=== PATIENT | male | born 1930 | race Caucasian/White ===

== ENCOUNTER 2018-05-25 07:53 | Day surgery (SDC) | payer MEDICARE ==
[~2018-05-25] VITALS: Ht 180.3 cm; Wt 61.2 kg
[~2018-05-25 07:53] MED LIST: DOXA4TAB3 PO; FERR325T14 PO; HYDROmorphone 2 MG/ML VIAL IV PRN; IV RINGERS,LACTATED 1000ML 1,000 ML IV SCH; LIDOCAINE 1% PF 2 ML VIAL. ID PRN; MORPHINE SULFATE 4 MG/ML VIAL. IV PRN; MV-M1TAB7 PO; OMEP40CA5 PO; ONDANSETRON PF 4 MG/2 ML VIAL. IV PRN; PROCHLORPERAZINE 10 MG/2 ML VIAL. IV PRN; TAMS0.4C2 PO; TRAZ-118 PO; fentaNYL PF VIAL 100 MCG/2 ML VIAL IV PRN
[2018-05-25 08:35] LABS: BASO % 1 % (0-3); EOS # 0.3 x10^3/uL (0.0-0.7); EOS % 8 % (0-3); HEMATOCRIT 40.3 % (39.0-53.0); HEMOGLOBIN 14.2 g/dL (13.0-17.5); LYMPH % 21 % (24-48); MEAN CORPUSCULAR HEMOGLOBIN 34 pg (25-35); MEAN CORPUSCULAR HGB CONC 35 g/dL (31-37); MEAN CORPUSCULAR VOLUME 97 fL (79-100); MONO # 0.5 x10^3/uL (0.0-1.1); MONO % 11 % (0-9); NEUT # 2.8 x10^3uL (1.8-7.7); NEUT % 60 % (31-73); PLATELET COUNT 436 x10^3/uL (140-400); RED BLOOD COUNT 4.15 x10^6/uL (4.30-5.70); RED CELL DISTRIBUTION WIDTH 12.9 % (11.5-14.5); WHITE BLOOD COUNT 4.7 x10^3/uL (4.0-11.0)
[2018-05-25 08:47] LABS: ALBUMIN 3.2 g/dL (3.4-5.0); CALCIUM 9.4 mg/dL (8.5-10.1); CREATININE 1.5 mg/dL (0.7-1.3); GFR 44.2
[2018-05-25] MEDS ORDERED: BUPIVAC MPF-EPI 0.5%-1:200000 30 ML VIAL. ONE (09:09)
[2018-05-25] MEDS ORDERED: LIDOCAINE 2% PF 5 ML VIAL. ONE (09:45)
[2018-05-25] MEDS ORDERED: PROPOFOL 20 ML IV ONE (09:45)
[2018-05-25] MEDS ORDERED: DEXAMETHASONE SOD PHOS 20 MG/5 ML VIAL. ONE (09:45)
[2018-05-25] MEDS ORDERED: ONDANSETRON PF 4 MG/2 ML VIAL. ONE (09:45)
[2018-05-25] MEDS ORDERED: fentaNYL PF VIAL 100 MCG/2 ML VIAL ONE ×2 (09:54→11:08)
[2018-05-25] MEDS ORDERED: SEVOFLURANE 31 TO 60 MINUTES. IH ONE (10:35)
--- NOTE | 2018-05-25 10:41 | PDOC ---
BRIEF OPERATIVE NOTE Date: May 25, 2018 Pre-Op Diagnosis incarcerated recurrent left inguinal hernia Post-Op Diagnosis same, indirect Procedure Performed repair with mesh, partial omentectomy Surgeon Heraclio Anesthesia Type: General Blood Loss 10cc IV Fluid 500cc Specimens Obtained hernia sack omentum Findings incarcerated omentum in an indirect hernia sack Complications none Operative Note WK # [id number] HILTON STORY MD May 25, 2018 10:41
--- NOTE | 2018-05-25 10:43 | DISCH ---
DISCHARGE INSTRUCTIONS Condition on Discharge Condition on Discharge: Stable Activity After Discharge Activity Instructions for Disc: Activity as tolerated, Avoid exertion Lifting Instructions after Dis: No heavy lifting Driving Instructions after Dis: Do not drive Diet after Discharge Diet after Discharge: Regular Wound Incision Care Wound/Incision Care: Ice to area for comfort Other wound/incision instructi: amanda showkerri Follow-Up Follow up with: Hercalio 06/04 HILTON STORY MD May 25, 2018 10:43
--- NOTE | 2018-05-25 10:52 | OP ---
DATE OF SURGERY: 05/25/2018 PREOPERATIVE DIAGNOSIS: Incarcerated left inguinal hernia. POSTOPERATIVE DIAGNOSIS: Incarcerated left inguinal hernia, indirect. PROCEDURE: 1. Repair with mesh. 2. Partial omentectomy. SURGEON: Michel Story MD. ANESTHESIA: General LMA. ESTIMATED BLOOD LOSS: 10 mL. IV FLUID: 500 mL. INDICATIONS: The patient is an 87-year-old extremely hard of hearing gentleman with a large fullness in the left groin, brought in for repair. OPERATIVE FINDINGS: The large indirect hernia sac contained incarcerated omentum, adequate inguinal floor present. DESCRIPTION OF PROCEDURE: The patient brought to the operating suite, given a general LMA and the left groin was prepped and draped in usual sterile fashion. A 0.5% Marcaine with epinephrine was used to infiltrate the skin and subcutaneous tissue along the incision line. Incision made and dissection carried down to the external oblique fascia. Bleeders were cauterized as identified. The fascia was opened in direction of its fibers and carefully freed from the underlying structures. This allowed exposure of the hernia, which was then reduced out of the scrotum up into the wound. The cord was freed off the hernia sac and a Helen drain placed around it. Attempts reducing the contents were unsuccessful and as such, the hernia sac was opened and the incarcerated omental contents were resected by serial clamping, dividing and ligating with 0 Vicryl tie. This allowed reduction of the remaining stump of omentum back into the abdomen. The hernia sac was closed with a stick tie 0 Vicryl, taking care to avoid adjacent structures. The excess sac was excised and the stump retracted spontaneously into the abdominal cavity. This was held in reduction with a large plug of a Phasix mesh, tacked with 2-0 PDS, taking care to avoid injury to adjacent vessels. A keyhole patch was fashioned and placed over the floor of the canal. The slit closed with a single 2-0 PDS stitch. The cord returned to its normal anatomical position and the external oblique fascia closed over in a running fashion with 3-0 Vicryl. Subcutaneous approximated with 3-0 Vicryl, skin closed with a subcuticular 4-0 Monocryl. Steri-Strips and sterile dressing applied. Prior to emergence from anesthesia, digital rectal exam failed to reveal evidence of prostatic enlargement or nodularity. The patient was awakened from his anesthetic and taken to the recovery room in satisfactory condition. MICHEL STORY MD DR: CHICHI/henrik JOB#: [id number] / [id number]
[2018-05-25] MEDS ORDERED: HYDR-3164 PO (10:55)
[2018-05-25] MEDS ORDERED: HYDROcodone/APAP 5/325MG 1 TAB TABLET PO ONE (11:00)
[2018-05-25 12:13] VITALS: BP 130/74
--- NOTE | 2018-05-26 16:11 | PATHOLOGY ---
[facility] Accession Number: [id number] . 01 Material submitted: . PART A: HERNIA SAC PART B: OMENTUM . 01 Clinical history: . Recurrent left inguinal hernia . 02 Diagnosis: A. Segment of focal mesothelial-lined fibromembranous and fibroadipose tissue, left inguinal hernia repair: - Hernia sac. . B. Segments of adipose tissue, omentum: - Congestion and focal recent hemorrhage. . (JPM:nash; 05/26/2018) MBR/05/26/2018 . 02 Electronically signed: . Miguel Payne MD, Pathologist NPI- [id number] . 01 Gross description: . A. The specimen is received in formalin, labeled "Timothy, Castellanos, hernia sac" and consists of a segment of pink-barnes membranous tissue with attached yellow lobulated soft tissue measuring 10.3 x 3.4 x 1.1 cm. Sectioning reveals no nodules or mass lesions. Rehanger sections are submitted in A1. . B. The specimen is received in formalin, labeled "Timothy, Castellanos, omentum" and consists of 2 segments of omentum measuring 25.0 x 19.9 x 2.5 cm. Sectioning reveals no nodules or mass lesions and termite control service representative sections are submitted in A1-A2. (SDY; 05/25/2018) SYU/SYU . 02 Pathologist provided ICD-10: K40.90, K66.1 . 02 CPT . 244837, [id number] Specimen Comment: A courtesy copy of this report has been sent to Specimen Comment: [phone], . Specimen Comment: Report sent to / DR SMITH Performed at: [address] [place] [address] [facility] [address], [place], [place] [id number] MD Henok Serrano MD Phone: [phone] Performed at: [address] [id number] MD Miguel Payne MD Phone: [phone]
== END 2018-05-25 12:13 | disposition home or self-care (01) ==
LOC: SURG 07:53
PROVIDERS: ATTEND Surgery
DX: K40.30 Unilateral inguinal hernia, with obstruction, without gangrene, not specified as recurrent (principal); K21.9 Gastro-esophageal reflux disease without esophagitis; F41.9 Anxiety disorder, unspecified; F03.90 Unspecified dementia, unspecified severity, without behavioral disturbance, psychotic disturbance, mood disturbance, and anxiety; Z98.890 Other specified postprocedural states; Z87.891 Personal history of nicotine dependence; Z79.899 Other long term (current) drug therapy
CPT/HCPCS: 36415; 49507; 80048; 82040; 85025; 88302; 88307; A7015; C1781; J0690; J1100; J2001; J2405; J2704; J3010; J3490